=== PATIENT | female | born 1935 | race Caucasian/White ===

== ENCOUNTER 2018-09-01 05:08 | Inpatient (IN) | payer MEDICARE ==
[~2018-09-01] VITALS: Ht 160 cm; Wt 82.3 kg
[~2018-09-01 05:08] MED LIST: ALPR-475 PO; CARV12.52 PO; FENT1PAT74 TD; FENTANYL PATCH TP; FLUT1DIS3 INH; FURO40SO5 PO; GLIM4TAB2 PO; HYDR-3343 PO; INSU100V8 SQ; LACT1CAP24 PO; LEVO500T47 PO; LOSA1TAB19 PO; POLY17PO5 PO; PRED10TA PO; SIMV10TA3 PO; SITA100T PO; SITA50TA PO; SPIR1TAB3 PO; TIOT18CA INH
--- NOTE | 2018-09-01 05:25 | NUR ---
FIRST CONTACT WITH PT. PT WITH COUGH X 1 WEEK AND TONIGHT WAS VOMITING DARK BROWN VOMIT X 3+. PT C/O ABD PAIN WELL. PT'S AOX4. RESPS EVEN AND UNLABORED. BP/SPO2 MONITORS IN PLACE. CALL LIGHT WITHIN PLACE.
[2018-09-01] MEDS ORDERED: ONDANSETRON 2MG/ML, 2ML ONE ×2 (05:47→07:51)
--- NOTE | 2018-09-01 05:49 | NUR ---
XRAY IN ROOM
[2018-09-01] MEDS ORDERED: ONDANSETRON 2MG/ML, 2ML IVPush ONE ×2 (06:00→08:00)
--- NOTE | 2018-09-01 06:04 | NUR ---
PT MEDICATED PER EMAR. PT TOLERATED WELL.
[2018-09-01 06:08] LABS: BASOPHILS # (AUTO) 0.02 x10^3/uL (0-0.1); BASOPHILS % (AUTO) 0 % (0-1); EOSINOPHILS # (AUTO) 0.07 x10^3/uL (0-0.4); EOSINOPHILS % (AUTO) 1 % (1-7); LYMPHOCYTES # (AUTO) 0.35 x10^3/uL (1-3.4); LYMPHOCYTES % (AUTO) 3 % (22-44); MD NO; MEAN CORPUSCULAR HEMOGLOBIN 30.2 pg (27.0-34.8); MEAN CORPUSCULAR HGB CONC 33.9 g/dL (32.4-35.8); MEAN PLATELET VOLUME 8.2 fL (7.4-10.4); MONOCYTES # (AUTO) 0.39 x10^3/uL (0.2-0.8); MONOCYTES % (AUTO) 3 % (2-9); NEUTROPHILS # (AUTO) 11.86 x10^3/uL (1.8-6.8); NEUTROPHILS % (AUTO) 94 % (42-75); PLATELET COUNT 187 x10^3/uL (130-400); RED BLOOD COUNT 4.14 x10^6/uL (3.82-5.3); RED CELL DISTRIBUTION WIDTH 12.5 % (9.6-15.2)
[2018-09-01 06:18] LABS: INTERNATIONAL NORMALIZED RATIO 1.03 (0.93-1.1); PROTHROMBIN TIME 10.8 Seconds (9.6-11.5)
[2018-09-01 06:21] LABS: ALBUMIN 4.1 g/dL (3.4-5.0); ANION GAP 11 mmol/L (5-15); CHLORIDE 91 mmol/L (98-107)
[2018-09-01 06:27] LABS: ALANINE AMINOTRANSFERASE 15 U/L (12-78); ALKALINE PHOSPHATASE 111 U/L (45-117); BILIRUBIN,TOTAL 1.1 mg/dL (0.2-1.0); CREATININE 2.43 mg/dL (0.55-1.02); TOTAL PROTEIN 7.6 g/dL (6.4-8.2); TROPONIN I < 0.015 ng/mL (0.000-0.045)
--- NOTE | 2018-09-01 06:57 | NUR ---
REPORT GIVEN TO OMAR BURNS.
--- NOTE | 2018-09-01 06:59 | NUR ---
REPORT TAKEN FROM MARGOT. PT ASLEEP. CALL LIGHT IN REACH.
--- NOTE | 2018-09-01 07:26 | NUR ---
PT DENIES NEEDS AT THIS TIME. CALL LIGHT IN REACH. PT UPDATED WITH POC BY .
[2018-09-01] MEDS ORDERED: RANI150T23 PO (07:40)
--- NOTE | 2018-09-01 07:40 | NUR ---
MED REC UPDATED
--- NOTE | 2018-09-01 08:41 | NUR ---
PT RESTING IN BED. FAMILY UPDATED ON POC.
--- NOTE | 2018-09-01 08:48 | NUR ---
REPORT GIVEN TO KATY SAAVEDRA ON MEDICAL.
[2018-09-01 09:25] VITALS: BP 159/72
[2018-09-01] MEDS ORDERED: FENTANYL 12 MCG PATCH TD SCH (11:00)
[2018-09-01] MEDS ORDERED: CARVEDILOL 6.25 MG TABLET PO SCH (11:00)
[2018-09-01] MEDS ORDERED: SODIUM CHLORIDE 0.9% 1,000 ML IV SCH (11:52)
[2018-09-01] MEDS ORDERED: ONDANSETRON 2MG/ML, 2ML IVPush PRN (12:00)
[2018-09-01] MEDS ORDERED: ESOMEPRAZOLE 40 MG IV IVPush SCH (12:00)
[2018-09-01] MEDS: PANTOPRAZOLE 40 MG IV IVPush SCH (12:36)
[2018-09-01 13:10] LABS: TROPONIN I < 0.015 ng/mL (0.000-0.045)
[2018-09-01 13:15] LABS: THYROID STIMULATING HORMONE 0.576 mIU/L (0.358-3.740)
[2018-09-01] MEDS ORDERED: POTASSIUM CHLORIDE 10 MEQ in SODIUM CHLORIDE 0.9% 250 ML IV ONE (16:00)
[2018-09-01] MEDS: INSULIN REGULAR 100 UNITS/ML, 3ML VIAL SQ-INSULIN SCH ×2 (16:00→21:00)
[2018-09-01] MEDS: SODIUM CHLORIDE 0.9% 1,000 ML IV SCH (16:00)
[2018-09-01] MEDS ORDERED: hydrALAzine 20 MG/ML, 1ML IV PRN (16:00)
[2018-09-01 16:23] VITALS: BP 166/75
[2018-09-01 16:46] LABS: MICROSCOPIC NOT IND
[2018-09-01 16:50] LABS: CULTURE INDICATED? NO
[2018-09-01] MEDS ORDERED: DEXTROSE 50%, 50ML SYRINGE IVPush ONE (17:30)
[2018-09-01 18:24] LABS: TROPONIN I < 0.015 ng/mL (0.000-0.045)
[2018-09-01] MEDS: METOPROLOL 1 MG/ML, 5ML IVPush SCH ×2 (18:45→22:00)
[2018-09-01 20:57] VITALS: BP 146/74
[2018-09-01] MEDS: HEPARIN 5,000 UNITS/ML, 1ML SQ SCH (21:00)
[2018-09-01 22:32] LABS: ANION GAP 5 mmol/L (5-15); CALCIUM 9.6 mg/dL (8.5-10.1); CHLORIDE 96 mmol/L (98-107); CREATININE 2.13 mg/dL (0.55-1.02)
[2018-09-02 01:22] VITALS: BP 155/77
[2018-09-02] MEDS: METOPROLOL 1 MG/ML, 5ML IVPush SCH (04:00)
[2018-09-02] MEDS: SODIUM CHLORIDE 0.9% 1,000 ML IV SCH (04:34)
[2018-09-02 04:37] VITALS: BP 136/77
[2018-09-02 05:56] LABS: BASOPHILS # (AUTO) 0.02 x10^3/uL (0-0.1); BASOPHILS % (AUTO) 0 % (0-1); EOSINOPHILS # (AUTO) 0.07 x10^3/uL (0-0.4); EOSINOPHILS % (AUTO) 1 % (1-7); LYMPHOCYTES # (AUTO) 0.67 x10^3/uL (1-3.4); LYMPHOCYTES % (AUTO) 10 % (22-44); MD NO; MEAN CORPUSCULAR HEMOGLOBIN 30.2 pg (27.0-34.8); MEAN CORPUSCULAR HGB CONC 33.5 g/dL (32.4-35.8); MEAN CORPUSCULAR VOLUME 89.9 fL (80-100); MEAN PLATELET VOLUME 8.1 fL (7.4-10.4); MONOCYTES # (AUTO) 0.66 x10^3/uL (0.2-0.8); MONOCYTES % (AUTO) 10 % (2-9); NEUTROPHILS # (AUTO) 5.47 x10^3/uL (1.8-6.8); NEUTROPHILS % (AUTO) 79 % (42-75); PLATELET COUNT 179 x10^3/uL (130-400); RED BLOOD COUNT 3.72 x10^6/uL (3.82-5.3); RED CELL DISTRIBUTION WIDTH 12.7 % (9.6-15.2)
[2018-09-02 06:03] LABS: CALCIUM 9.5 mg/dL (8.5-10.1); CHLORIDE 98 mmol/L (98-107)
[2018-09-02 06:09] LABS: ALANINE AMINOTRANSFERASE 15 U/L (12-78); ALBUMIN 3.4 g/dL (3.4-5.0); ALKALINE PHOSPHATASE 90 U/L (45-117); ANION GAP 8 mmol/L (5-15); BILIRUBIN,TOTAL 0.6 mg/dL (0.2-1.0); CREATININE 2.11 mg/dL (0.55-1.02); TOTAL PROTEIN 6.6 g/dL (6.4-8.2)
[2018-09-02] MEDS: INSULIN REGULAR 100 UNITS/ML, 3ML VIAL SQ-INSULIN SCH ×3 (07:00→16:00)
[2018-09-02 07:11] VITALS: BP 144/75
[2018-09-02] MEDS ORDERED: POTASSIUM CHLORIDE 20 MEQ in SODIUM CHLORIDE 0.9% 250 ML IV ONE (09:00)
[2018-09-02] MEDS ORDERED: FUROSEMIDE 40 MG TABLET PO SCH (09:00)
[2018-09-02] MEDS: DEXTROSE 50%, 50ML SYRINGE IVPush PRN ×2 (09:21→15:13)
[2018-09-02] MEDS ORDERED: GLUCAGON 1 MG IM PRN (09:30)
[2018-09-02] MEDS ORDERED: DEXTROSE 4 GM TAB.CHEW PO PRN (09:30)
[2018-09-02] MEDS: PANTOPRAZOLE 40 MG IV IVPush SCH (09:35)
[2018-09-02] MEDS: SODIUM CHLORIDE FLUSH 10ML SYR IVF SCH ×2 (09:37→20:37)
[2018-09-02] MEDS: HEPARIN 5,000 UNITS/ML, 1ML SQ SCH ×2 (09:41→20:37)
[2018-09-02] MEDS ORDERED: POTASSIUM CHLORIDE 10 MEQ in SODIUM CHLORIDE 0.9% 1,000 ML IV SCH (11:52)
[2018-09-02 13:47] VITALS: BP 139/72
[2018-09-02] MEDS ORDERED: SODIUM CHLORIDE 0.9% 1,000 ML IV SCH (16:00)
[2018-09-02] MEDS ORDERED: METOPROLOL 1 MG/ML, 5ML IVPush SCH (16:00)
[2018-09-02] MEDS: D5%-0.45% NACL 1,000 ML IV SCH (17:54)
[2018-09-02 19:48] VITALS: BP 153/76
[2018-09-02 20:31] VITALS: BP 153/74
[2018-09-03 02:02] VITALS: BP 158/71
[2018-09-03] MEDS: D5%-0.45% NACL 1,000 ML IV SCH (03:52)
[2018-09-03 05:53] LABS: BASOPHILS # (AUTO) 0.01 x10^3/uL (0-0.1); BASOPHILS % (AUTO) 0 % (0-1); EOSINOPHILS # (AUTO) 0.09 x10^3/uL (0-0.4); EOSINOPHILS % (AUTO) 2 % (1-7); LYMPHOCYTES # (AUTO) 0.56 x10^3/uL (1-3.4); LYMPHOCYTES % (AUTO) 10 % (22-44); MD NO; MEAN CORPUSCULAR HEMOGLOBIN 29.7 pg (27.0-34.8); MEAN CORPUSCULAR HGB CONC 33.3 g/dL (32.4-35.8); MEAN CORPUSCULAR VOLUME 89.3 fL (80-100); MEAN PLATELET VOLUME 8.1 fL (7.4-10.4); MONOCYTES # (AUTO) 0.52 x10^3/uL (0.2-0.8); MONOCYTES % (AUTO) 10 % (2-9); NEUTROPHILS # (AUTO) 4.21 x10^3/uL (1.8-6.8); NEUTROPHILS % (AUTO) 78 % (42-75); PLATELET COUNT 158 x10^3/uL (130-400); RED BLOOD COUNT 3.57 x10^6/uL (3.82-5.3); RED CELL DISTRIBUTION WIDTH 12.8 % (9.6-15.2)
[2018-09-03 05:55] LABS: ALANINE AMINOTRANSFERASE 14 U/L (12-78); ALBUMIN 3.2 g/dL (3.4-5.0); ANION GAP 6 mmol/L (5-15); CALCIUM 9.6 mg/dL (8.5-10.1); CHLORIDE 102 mmol/L (98-107)
[2018-09-03 05:58] LABS: ALKALINE PHOSPHATASE 82 U/L (45-117); BILIRUBIN,TOTAL 0.6 mg/dL (0.2-1.0); CREATININE 1.64 mg/dL (0.55-1.02); TOTAL PROTEIN 6.2 g/dL (6.4-8.2)
[2018-09-03 07:37] VITALS: BP 176/80
[2018-09-03] MEDS: POLYETHYLENE GLYCOL 17 GM PACKET PO PRN (08:39)
[2018-09-03] MEDS: SODIUM CHLORIDE FLUSH 10ML SYR IVF SCH ×2 (09:00→20:37)
[2018-09-03] MEDS: PANTOPRAZOLE 40 MG IV IVPush SCH (09:00)
[2018-09-03] MEDS: HEPARIN 5,000 UNITS/ML, 1ML SQ SCH ×2 (10:02→20:37)
[2018-09-03 12:13] LABS: HEMOGLOBIN A1C 7.2 % (4.2-6.3)
[2018-09-03 15:00] VITALS: BP 177/68
[2018-09-03] MEDS ORDERED: D5%-0.45% NACL 1,000 ML IV SCH (17:00)
[2018-09-03 21:33] VITALS: BP 157/66
[2018-09-04 02:48] VITALS: BP 164/76
[2018-09-04 06:52] VITALS: BP 176/78
[2018-09-04] MEDS: HEPARIN 5,000 UNITS/ML, 1ML SQ SCH (08:48)
[2018-09-04] MEDS: POLYETHYLENE GLYCOL 17 GM PACKET PO PRN (08:48)
[2018-09-04] MEDS: SODIUM CHLORIDE FLUSH 10ML SYR IVF SCH (08:49)
[2018-09-04] MEDS ORDERED: ESOMEPRAZOLE 40 MG IV IVPush SCH (09:00)
[2018-09-04 13:40] VITALS: BP 169/73
== END 2018-09-04 16:00 | disposition home health service (06) | DRG 388 ==
LOC: ED 07:23 → UNDOADMIN 07:56 → EDIP 07:56 → 3NE 07:56 → 4EST 18:04 → DCLOUNGE 09-04 15:46
PROVIDERS: ADMIT Internal Medicine; ATTEND Internal Medicine
PROC: 0D9670Z Drainage of Stomach with Drainage Device, Via Natural or Artificial Opening (ICD-10-PCS; principal; 2018-09-01)
DX: K56.609 Unspecified intestinal obstruction, unspecified as to partial versus complete obstruction (principal); J96.01 Acute respiratory failure with hypoxia; N18.4 Chronic kidney disease, stage 4 (severe); E22.2 Syndrome of inappropriate secretion of antidiuretic hormone; F11.20 Opioid dependence, uncomplicated; I13.0 Hypertensive heart and chronic kidney disease with heart failure and stage 1 through stage 4 chronic kidney disease, or unspecified chronic kidney disease; I50.32 Chronic diastolic (congestive) heart failure; Z88.0 Allergy status to penicillin; Z88.2 Allergy status to sulfonamides; E11.22 Type 2 diabetes mellitus with diabetic chronic kidney disease; E11.649 Type 2 diabetes mellitus with hypoglycemia without coma; E78.5 Hyperlipidemia, unspecified; E87.6 Hypokalemia; H91.90 Unspecified hearing loss, unspecified ear; I25.10 Atherosclerotic heart disease of native coronary artery without angina pectoris; J44.9 Chronic obstructive pulmonary disease, unspecified; K21.9 Gastro-esophageal reflux disease without esophagitis; K80.20 Calculus of gallbladder without cholecystitis without obstruction; Z66 Do not resuscitate; Z79.84 Long term (current) use of oral hypoglycemic drugs; Z80.6 Family history of leukemia; Z80.7 Family history of other malignant neoplasms of lymphoid, hematopoietic and related tissues; Z83.3 Family history of diabetes mellitus; Z85.038 Personal history of other malignant neoplasm of large intestine; Z85.42 Personal history of malignant neoplasm of other parts of uterus; Z85.828 Personal history of other malignant neoplasm of skin; Z87.891 Personal history of nicotine dependence; Z90.49 Acquired absence of other specified parts of digestive tract; Z90.710 Acquired absence of both cervix and uterus; Z99.81 Dependence on supplemental oxygen
CPT/HCPCS: 36415; 71045; 74018; 74176; 76700; 80048; 80053; 81003; 82962; 83036; 83690; 83735; 83880; 84443; 84484; 85025; 85610; 93005; 93306; 96374; 96376; G0378; J1644; J2405; J3480; C9113; J7030; J7050